=== PATIENT | female | born 1985 | race Caucasian/White ===

== ENCOUNTER 2021-08-06 21:29 | Emergency (ER) | payer OTHER, SELFPAY ==
--- NOTE | 2021-08-06 21:45 | XRR_ITS ---
PROCEDURE INFORMATION: Exam: XR Left Foot Exam date and time: 08/06/2021 9:50 PM Age: 36 years old Clinical indication: Pain; Foot; Left; Additional info: Injury/pain TECHNIQUE: Imaging protocol: Radiologic exam of the Left foot. Views: 3 or more views. COMPARISON: No relevant prior studies available. FINDINGS: Bones/joints: There is an oblique fracture through the mid/distal shaft of the 5th proximal phalanx with minimal displacement and no dislocation. The lateral view of the toes is limited due to overlapping. Soft tissues: Normal. Other findings: Three nonweightbearing views submitted. XR/XR foot LT min 3V* [id number] IMPRESSION: Fifth toe fracture as described.
[2021-08-06 22:03] VITALS: BP 138/89; PULSE 93; RESP 16; TEMP 36.8; O2SAT 99
--- NOTE | 2021-08-06 22:09 | ED_ITS ---
HPI - Extremity Injury (Lower) General: Chief Complaint: Extremity Injury, Lower Stated Complaint: L foot injury Time Seen by Provider: 08/06/21 22:05 Source: patient and family Mode of arrival: wheelchair Limitations: no limitations History of Present Illness: Patient is a 36-year-old female presents to ED today with a complaint of left fifth toe pain. Patient states she was chasing a young child when she got the toe caught on the edge of the footboard of a bed. MD complaint: foot injury Onset (ago): hour(s) Injury: Left: toes Place: home Severity: moderate Relieving factors: immobilization Exacerbating factors: weight bearing Context: direct blow Associated symptoms: Reports no associated symptoms Other symptoms: none Review of Systems Musc: Reports: extremity pain (L foot/toe) Physical Exam Const: COMMON NORMALS: no acute distress, patient oriented x3, no limitations, healthy appearing, alert and well nourished Extremity: GENERAL: Yes normal exam except as noted LEFT LOWER EXTREMITY: Yes foot & digits (pt with pain to L 5th toe and proximal metatarasal) Left foot and digits: Yes neurovascular exam (normal ) Neuro: COMMON NORMALS: patient oriented x3, moves all extremities, no focal motor deficits and no sensory deficits noted SENSORIUM/ORIENTATION: Yes alert Course Vital Signs: Vital signs: Vital Signs Temperature 98.3 F 08/06/21 22:03 Pulse Rate 93 08/06/21 22:03 Respiratory Rate 16 08/06/21 22:03 Blood Pressure 138/89 08/06/21 22:03 Pulse Oximetry 99 08/06/21 22:03 MDM - Extremity Injury (Lower) Medical Decision Making XR with proximal phalanx fracture of L 5th toe. Will place in hard soled post op shoe and she would like to follow up with her PCP. Discharge Plan Discharge Patient Disposition: Home Clinical Impression: Fracture of proximal phalanx of toe of left foot Condition: Stable Discharge Orders: Discharge ED (Routine); Ordered 08/06/21 Ordered By: Sandhya Pierce Patient Instructions: Fractures - Phalanx (Toe), Toe Fracture (ED) Coding Level of Care Code ED Adobe Ball Mixer for Sonya Mcdonnell
== END 2021-08-06 22:53 | disposition home or self-care (01) ==
PROVIDERS: Emergency Provider Physician Assistant
DX: S92.512A Displaced fracture of proximal phalanx of left lesser toe(s), initial encounter for closed fracture (principal); X58.XXXA Exposure to other specified factors, initial encounter
CPT/HCPCS: 73630; 99283

== ENCOUNTER → 2021-08-18 12:44 | Outpatient (BNVA) | payer OTHER, SELFPAY | PROVIDERS: Visit Provider Family Medicine | DX: Z20.822 Contact with and (suspected) exposure to COVID-19 (principal) | CPT/HCPCS: 87631; 87635 ==

== ENCOUNTER 2021-09-22 12:32 | Outpatient (CLI) | payer OTHER, SELFPAY ==
--- NOTE | 2021-09-22 12:53 | XR_ITS ---
WS: [id number] Cervical spine, 3 views, 09/22/2021 Clinical Data: neck pain and stiffness Comparison: None. Findings: No compression fractures are seen. The disc heights are normal. There is no prevertebral so ft tissue swelling. The odontoid is unremarkable. The soft tissues of the neck and the lung apices ar e normal. XR/XR cervical spine 3V* [id number] Impression: Negative cervical spine.
== END 2021-09-22 12:33 | disposition home or self-care (01) ==
PROVIDERS: PCP Clinical Nurse Specialist Adult Health; Visit Provider Clinical Nurse Specialist Adult Health
DX: M54.2 Cervicalgia (principal)
CPT/HCPCS: 72040

== ENCOUNTER 2022-01-30 20:04 | Emergency (ER) | payer OTHER, SELFPAY ==
--- NOTE | 2022-01-30 20:06 | XRR_ITS ---
PROCEDURE INFORMATION: Exam: XR Chest Exam date and time: 01/30/2022 8:41 PM Age: 36 years old Clinical indication: Shortness of breath; Additional info: SOB TECHNIQUE: Imaging protocol: Radiologic exam of the chest. Views: 1 view. COMPARISON: CR XR cervical spine 3V* [id number] 09/22/2021 1:00 PM FINDINGS: Lungs: Unremarkable. No consolidation. Pleural spaces: Unremarkable. No pleural effusion. No pneumothorax. Heart/Mediastinum: Unremarkable. No cardiomegaly. Bones/joints: Unremarkable. XR/XR chest 1V portable [id number] IMPRESSION: No acute findings.
[2022-01-30 20:07] VITALS: BP 103/68; PULSE 100; RESP 22; TEMP 36.7; O2SAT 100; BMI 27.3
[2022-01-30 21:23] LABS: Basophils % 0.3 %; Eosinophils % 0.2 %; Hematocrit 39.7 % (37.0-47.0); Hemoglobin 13.2 g/dL (11.5-15.3); Lymphocytes % 8.5 %; Mean Corpuscular HGB Conc 33.2 g/dL (30.0-36.0); Mean Corpuscular Hemoglobin 29.1 pg (28.0-34.0); Mean Corpuscular Volume 87.4 fl (81-99); Mean Platelet Volume 10.3 fL (7.4-10.4); Monocytes # 0.7 10^3/uL (0.2-0.9); Monocytes % 6.1 %; Neutrophils # 10.03 10^3/uL (1.8-7.7); Neutrophils % 84.6 %; Nucleated Red Blood Cells % 0 %; Platelet Count 374 10^3/cmm (130-400); Red Blood Count 4.54 10^6/uL (4.1-5.3); Red Cell Distribution Width 13.4 % (12.1-15.1); White Blood Count 11.9 10^3/uL (4.0-10.0)
[2022-01-30 21:41] LABS: HCG, Serum Qual Negative (Negative)
[2022-01-30 21:45] LABS: Alanine Aminotransferase 138 U/L (0-33); Albumin Level 4.1 g/dL (3.5-5.2); Alkaline Phosphatase 48 U/L (35-105); Anion Gap 15.8 (5-19); Aspartate Amino Transferase 67 U/L (0-32); Blood Urea Nitrogen 9 mg/dL (6-20); Calcium 9.6 mg/dL (8.5-10.5); Carbon Dioxide 22 mmol/L (22-29); Chloride 105 mmol/L (98-107); Globulin 3.6 g/dL (1.3-4.6); Glomerular Filtration Rate 95.8 mL/min (90-130); Glucose 106 mg/dL (65-115); Lipase 51 U/L (13-60); Osmolality Calculated 287 mOsm/kg (285-295); Potassium 3.8 mmol/L (3.5-5.1); Sodium 139 mmol/L (136-145); Total Bilirubin 0.4 mg/dL (0.15-1.2); Total Protein 7.7 g/dL (6.6-8.7)
[2022-01-30 22:48] VITALS: BP 126/99; PULSE 84; RESP 16; O2SAT 100
--- NOTE | 2022-01-30 22:48 | USR_ITS ---
PROCEDURE INFORMATION: Exam: US Abdomen, Limited; Right Upper Quadrant Exam date and time: 01/30/2022 11:44 PM Age: 36 years old Clinical indication: Abdominal pain; Patient HX: Normal tbili = 0.4, normal alkphos = 48; Normal lipase = 51; Elevated ast = 67; Elevated alt = 138; Severe, sharp, epigastric pain today. ; Additional info: Abd pain TECHNIQUE: Imaging protocol: Real time ultrasound of the abdomen with image documentation. Limited exam focused on the right upper quadrant. COMPARISON: No relevant prior studies available. FINDINGS: Liver: Normal. No masses. Gallbladder: Normal. No gallstones. There is no gallbladder wall thickening. Biliary ducts: Normal. No stones. No dilation. Pancreas: Visualized pancreas is unremarkable. Right kidney: Right kidney measures 10.4 cm in length. No mass. No hydronephrosis. US/US gall bladder [id number] IMPRESSION: No acute findings.
--- NOTE | 2022-01-30 23:01 | W.ED.ABDPA2 ---
HPI - Abdominal Pain General: Chief Complaint: Abdominal Pain Stated Complaint: ABD Pain\SOB Time Seen by Provider: 01/30/22 21:58 Source: patient Mode of arrival: ambulatory Limitations: no limitations History of Present Illness: 36-year-old female states since noon today she has been having a bandlike pain in her upper abdomen mainly in her epigastric and right upper quadrant. States pain has been sharp in nature does radiate around her back states she has had vomiting with that states pains actually improved after vomiting states that pain it was not worse this afternoon was a 6 out of 10 she states she is currently pain-free no history of gallbladder issues she denies any fevers. Denies any chest pain. Associated Symptoms: Reports nausea and vomiting; Denies chills, dysuria and fever(s) Related Data: Date of Last Menstrual Period: 01/30/22 Review of Systems Const: Denies: fever(s), chills, body aches or change in appetite Eyes: Denies: blurry vision or eye discomfort ENMT: Denies: throat pain or dental pain Card: Denies: chest pain Resp: Denies: dyspnea GI: Reports: abdominal pain, nausea and vomiting : Denies: dysuria Musc: Denies: neck pain or back pain Skin/Breast: Denies: rash Neuro: Denies: headache(s) Psych: Denies: depression Casey/Lymph: Denies: easy bruising All/Imm: Denies: urticaria PFSH ED PFSH: Medical History Gestational hypertension Paroxysmal atrial tachycardia Surgical History No pertinent past surgical history Family History Grandmother Cancer breast Other CAD (coronary artery disease) Diabetes Social History Smoking and tobacco status: never smoked Alcohol intake: current Alcohol intake frequency: holidays/special occasions only Adopted: No Caregiver/support person: No Lives independently: Yes Household members: spouse and children Marital status: Current occupational status: employed Female Reproductive History: Date of last menstrual period: 01/30/22 Para: 1 Physical Exam Const: COMMON NORMALS: no acute distress, patient oriented x3 and healthy appearing HENMT: COMMON NORMALS: normocephalic and atraumatic HEAD & SCALP: normocephalic and atraumatic Eye: COMMON NORMALS: Equal, round and reactive pupils present and EOMs intact bilaterally PUPIL: Yes Equal, round and reactive pupils present Neck/C-Spine: COMMON NORMALS: full ROM and supple Chest: COMMONS NORMALS: normal inspection of the chest and normal palpation of entire chest wall Resp: COMMON NORMALS: normal respiratory effort, No retractions, No use of accessory muscles and clear to auscultation bilaterally AUSCULTATION: clear to auscultation bilaterally Cardio: COMMON NORMALS: regular rate, regular rhythm and No murmurs present (Cardio) RATE: regular rate RHYTHM: regular rhythm GI: COMMON NORMALS: Normal to inspection, nondistended, normoactive bowel sounds present, Soft to palpation, non-tender and no masses PALPATION: Yes Soft to palpation Extremity: COMMON NORMALS: normal to inspection and full ROM Neuro: COMMON NORMALS: patient oriented x3, moves all extremities and no focal motor deficits Psych: COMMON NORMALS: mental status grossly normal, Normal thought process present and cooperative THOUGHT PROCESS: Normal thought process present Skin: COMMON NORMALS: no rashes or lesions noted and no wounds GENERAL SKIN EXAM: no rashes or lesions noted Course Vital Signs: Vital signs: Vital Signs Temperature 98.1 F 01/30/22 20:07 Pulse Rate 74 01/31/22 00:00 Respiratory Rate 14 01/31/22 00:00 Blood Pressure 115/68 01/31/22 00:00 Pulse Oximetry 99 01/31/22 00:00 Oxygen Delivery Me thod 01/30/22 22:48 MDM - Abdominal Pain Medical Decision Making Patient presents with upper abdominal pain her blood work and ultrasound here are normal her pain has been resolved could be gastric in nature she has no signs of acute surgical abdomen do not believe she needs a CT scan of her abdomen at this time we will place her on Protonix along with Zofran and get her follow-up with a surgeon she is to return if worsening. Lab Data 01/30/22 21:09 01/30/22 21:09 Labs/Radiology: Radiology Impressions Chest X-Ray 01/30/22 20:06 IMPRESSION: No acute findings. Gallbladder Ultrasound 01/30/22 22:48 IMPRESSION: No acute findings. Laboratory Results WBC 11.9 10^3/uL (4.0-10.0) H 01/30/22 21:09 RBC 4.54 10^6/uL (4.1-5.3) 01/30/22 21:09 Hgb 13.2 g/dL (11.5-15.3) 01/30/22 21:09 Hct 39.7 % (37.0-47.0) 01/30/22 21:09 MCV 87.4 fl (81-99) 01/30/22 21:09 MCH 29.1 pg (28.0-34.0) 01/30/22 21:09 MCHC 33.2 g/dL (30.0-36.0) 01/30/22 21:09 RDW 13.4 % (12.1-15.1) 01/30/22 21:09 Plt Count 374 10^3/cmm (130-400) 01/30/22 21:09 MPV 10.3 fL (7.4-10.4) 01/30/22 21:09 Neut % (Auto) 84.6 % 01/30/22 21:09 Lymph % (Auto) 8.5 % 01/30/22 21:09 Parke % (Auto) 6.1 % 01/30/22 21:09 Eos % (Auto) 0.2 % 01/30/22 21:09 Baso % (Auto) 0.3 % 01/30/22 21:09 Neut # (Auto) 10.03 10^3/uL (1.8-7.7) H 01/30/22 21:09 Lymph # (Auto) 1.0 10^3/uL (0.8-4.8) 01/30/22 21:09 Parke # (Auto) 0.7 10^3/uL (0.2-0.9) 01/30/22 21:09 Eos # (Auto) 0.0 10^3/uL (0.0-0.8) 01/30/22 21:09 Baso # (Auto) 0.0 10^3/uL (0.0-0.1) 01/30/22 21:09 Nucleated RBC % (auto) 0 % 01/30/22 21:09 Nucleated RBCs # 0.0 /100WBC 01/30/22 21:09 Sodium 139 mmol/L (136-145) 01/30/22 21:09 Potassium 3.8 mmol/L (3.5-5.1) 01/30/22 21:09 Chloride 105 mmol/L (98-107) 01/30/22 21:09 Carbon Dioxide 22 mmol/L (22-29) 01/30/22 21:09 Anion Gap 15.8 (5-19) 01/30/22 21:09 BUN 9 mg/dL (6-20) 01/30/22 21:09 Creatinine 0.7 mg/dL (0.5-0.9) 01/30/22 21:09 GFR Calculation 95.8 mL/min (90-130) 01/30/22 21:09 Glucose 106 mg/dL (65-115) 01/30/22 21:09 Calculated Osmolality 287 mOsm/kg (285-295) 01/30/22 21:09 Calcium 9.6 mg/dL (8.5-10.5) 01/30/22 21:09 Total Bilirubin 0.4 mg/dL (0.15-1.2) 01/30/22 21:09 AST 67 U/L (0-32) H 01/30/22 21:09 ALT 138 U/L (0-33) H 01/30/22 21:09 Alkaline Phosphatase 48 U/L (35-105) 01/30/22 21:09 Total Protein 7.7 g/dL (6.6-8.7) 01/30/22 21:09 Albumin 4.1 g/dL (3.5-5.2) 01/30/22 21:09 Globulin 3.6 g/dL (1.3-4.6) 01/30/22 21:09 Lipase 51 U/L (13-60) 01/30/22 21:09 HCG, Qual Negative (Negative) 01/30/22 21:09 Urine Color Dark yellow (Yellow) 01/30/22 22:44 Urine Appearance Sl hazy (CLEAR) A 01/30/22 22:44 Urine pH 5 (5-7) 01/30/22 22:44 Ur Specific [place] 1.030 (1.005-1.030) 01/30/22 22:44 Urine Protein 1+ (Negative) H 01/30/22 22:44 Urine Glucose (UA) Norm (Normal) 01/30/22 22:44 Urine Ketones 3+ (Negative) H 01/30/22 22:44 Urine Blood 3+ (Negative) H 12 22:44 Urine Nitrate Negative (Negative) 01/30/22 22:44 Urine Bilirubin 1+ (Negative) H 01/30/22 22:44 Urine Urobilinogen 1 mg/dL (Negative) H 01/30/22 22:44 Ur Leukocyte Esterase Negative (Negative) 12 22:44 Urine RBC Too numerous to cnt /hpf (0-2) H 01/30/22 22:44 Urine WBC None /hpf (0-5) 12 22:44 Ur Squamous Epith Cells 0-4 /hpf (0-5) H 01/30/22 22:44 Amorphous Sediment 1+ /hpf 01/30/22 22:44 Urine Bacteria None /hpf (NONE) 01/30/22 22:44 Urine Mucus 1+ /hpf 01/30/22 22:44 Discharge Plan Discharge Patient Disposition: Home Clinical Impression: Abdominal pain, Vomiting Condition: Stable Prescriptions: New Protonix 40 mg tablet,delayed release (DR/EC) 40 mg PO DAILY Qty: 60 0RF ondansetron 4 mg tablet,disintegrating 4 mg PO Q6H PRN (Reason: nausea and vomiting) Qty: 14 0RF No Action metaxalone 800 mg tablet 800 mg PO BID PRN (Reason: muscle pain) Qty: 30 0RF azithromycin 250 mg tablet See Rx Instructions PO .COMPLEX Qty: 6 0RF Rx Instructions: For 250 mg dose pack: take 500 mg today (day 1), then 250 mg for 4 days (days 2-5) PO cefdinir 300 mg capsule 300 mg PO Q12H Qty: 14 0RF Discharge Orders: Discharge ED (Routine); Ordered 01/31/22 Ordered By: Anton Nieves Referrals: Eliezer Claire DO [Physician] - 1-3 days Discharge Diet: Advance as tolerated Discharge Activity: Resume usual activity Patient Instructions: Acute Nausea and Vomiting (ED), Abdominal Pain (ED) Coding Level of Care Code ED Assistant Toddler Teacher for Chg Fwd Exam Comprehensive
[2022-01-30] MEDS: ondansetron 2 mg/ML SDV 2 mL 4 MG IVP (23:04)
[2022-01-30] MEDS: sodium chloride 0.9% 1,000 ML 999 ML IV (23:04)
[2022-01-30 23:09] LABS: Protein Urine 1+ (Negative); Urine Appearance SL Hazy (CLEAR); Urine Color Dark Yellow (Yellow); pH Urine 5 (5-7)
[2022-01-30 23:10] LABS: Add Urine Culture? No; Add Urine Microscopic? YES; Amorphous Sediment Urine 1+ /hpf; Bilirubin Urine 1+ (Negative); Blood Urine 3+ (Negative); Glucose Urine UA Norm (Normal); Ketones Urine 3+ (Negative); Leukocyte Esterase Urine Negative (Negative); Mucus Urine 1+ /hpf; Nitrate Urine Negative (Negative); RBC Urine TOO NUMEROUS TO CNT /hpf (0-2); Squamous Epithelial Cell Urine 0-4 /hpf (0-5); Urobilinogen Urine 1 mg/dL (Negative)
[2022-01-30 23:30] VITALS: BP 117/73; PULSE 82; RESP 14; O2SAT 100
[2022-01-31] VITALS: BP 115/68; PULSE 74; RESP 14; O2SAT 99
--- NOTE | 2022-01-31 14:16 | DCPLANNER ---
Addendum entered by Berenice Gregory 02/02/22 14:10: curriculum manager received the following message from general surgery regarding follow up appointment: Dr. Claire is not in network with [facility].. Please refer patient elsewhere curriculum manager unable to reach patient at this time to discuss where patient would like to be referred. Original Note: curriculum manager had message to schedule a follow up appointment for patient with general surgery. curriculum manager sent patients information to the front office staff at general surgery. Patients information will be printed and reviewed. Clinic will call patient with appointment information.
== END 2022-01-31 00:54 | disposition home or self-care (01) ==
PROVIDERS: Emergency Provider Emergency Medicine
DX: R10.9 Unspecified abdominal pain (principal); R11.11 Vomiting without nausea
CPT/HCPCS: 36415; 71045; 76705; 80053; 81001; 83690; 84703; 85025; 96361; 96374; 99285; J2405; J7030

== ENCOUNTER → 2022-08-13 15:23 | Outpatient (BNVA) | payer OTHER, SELFPAY | PROVIDERS: PCP Family Medicine; Visit Provider Nurse Practitioner Family | DX: J02.9 Acute pharyngitis, unspecified (principal) | CPT/HCPCS: 87071; 87880 ==

== ENCOUNTER → 2022-11-09 08:18 | Outpatient (BNVA) | payer OTHER, SELFPAY | PROVIDERS: PCP Family Medicine; Visit Provider Family Medicine | DX: N92.6 Irregular menstruation, unspecified (principal); R53.83 Other fatigue; R63.5 Abnormal weight gain; R68.82 Decreased libido; E03.9 Hypothyroidism, unspecified; R00.2 Palpitations | CPT/HCPCS: 80053; 82607; 82672; 84144; 84403; 84443; 85025 ==